=== PATIENT | female | born 1985 | race Caucasian/White ===

== ENCOUNTER → 2017-09-28 | Outpatient (CLI) | payer BC | END | disposition home or self-care (01) | LOC: C.PAPS 15:41 | PROVIDERS: ATTEND Obstetrics & Gynecology | DX: O36.80X0 Pregnancy with inconclusive fetal viability, not applicable or unspecified (principal); Z3A.00 Weeks of gestation of pregnancy not specified ==

== ENCOUNTER → 2017-09-28 | Outpatient (CLI) | payer BC ==
[2017-09-28 13:07] LABS: BASO % 0.9 %; BASO ABS # 0.06 K/uL (0-0.2); COMPLETE YES; EOS % 4.1 %; HEMATOCRIT 38.4 % (37-47); IG% 0.2 %; LYMPH % 23.1 %; LYMPH ABS # 1.52 K/uL (1.2-3.4); MEAN CELL VOLUME 86.5 fL (80-100); MEAN CORPUSCULAR HEMOGLOBIN 29.7 pg (25-34); MEAN CORPUSCULAR HGB CONC 34.4 g/dl (32-36); MEAN PLATELET VOLUME 9.5 fL (7.4-10.4); MONO % 6.8 %; NEUT % 64.9 %; PLATELET COUNT 253 K/uL (130-400); RED BLOOD COUNT 4.44 M/uL (4.2-5.4); WHITE BLOOD COUNT 6.57 K/uL (4.8-10.8)
== END | disposition home or self-care (01) ==
LOC: C.LAB1850 11:52
PROVIDERS: ATTEND Obstetrics & Gynecology
DX: Z34.81 Encounter for supervision of other normal pregnancy, first trimester (principal); Z36.89 Encounter for other specified antenatal screening; O36.80X0 Pregnancy with inconclusive fetal viability, not applicable or unspecified

== ENCOUNTER → 2017-09-28 | Outpatient (CLI) | payer BC ==
[2017-09-28 11:37] LABS: URINE APPEARANCE CLEAR (CLEAR); URINE BILIRUBIN NEG (NEG); URINE COLOR YELLOW; URINE NITRITE NEG (NEG); URINE PH 7.5 (4.5-7.5); URINE SPECIFIC GRAVITY 1.014 (1.000-1.030); UROBILINOGEN NEG (NEG)
[2017-09-28 11:39] LABS: MANUAL MICROSCOPIC REQUIRED? NO; REVIEW REQ? NO
== END | disposition home or self-care (01) ==
LOC: C.LABSPEC 11:04
PROVIDERS: ATTEND Obstetrics & Gynecology
DX: Z36.89 Encounter for other specified antenatal screening (principal)

== ENCOUNTER 2017-10-04 10:43 | Emergency (ER) | payer BC, OTHER ==
[~2017-10-04] VITALS: Ht 170.2 cm; Wt 60.3 kg
[2017-10-04 10:46] VITALS: Ht 170.2 cm; Wt 60.3 kg
[2017-10-04] MEDS ORDERED: ONDANSETRON INJ 2 MG/ML 2 ML VIAL IV STA (11:09)
[2017-10-04] MEDS ORDERED: MoRPHine SULFATE 4 MG/ML 1 ML CARP\\VIAL IV STA (11:28)
[2017-10-04 11:31] VITALS: O2SAT 98
[2017-10-04 11:33] LABS: BASO % 0.3 %; BASO ABS # 0.03 K/uL (0-0.2); EOS % 2.5 %; EOS ABS # 0.23 K/uL (0-0.5); HEMATOCRIT 39.5 % (37-47); HEMOGLOBIN 13.6 g/dL (12.0-16.0); IG# 0.01 K/uL (0.00-0.02); LYMPH % 19.3 %; LYMPH ABS # 1.78 K/uL (1.2-3.4); MEAN CELL VOLUME 86.6 fL (80-100); MEAN CORPUSCULAR HEMOGLOBIN 29.8 pg (25-34); MEAN CORPUSCULAR HGB CONC 34.4 g/dl (32-36); MEAN PLATELET VOLUME 8.9 fL (7.4-10.4); MONO ABS # 0.37 K/uL (0.11-0.59); NEUT % 73.8 %; NEUT ABS # 6.81 K/uL (1.4-6.5); PLATELET COUNT 273 K/uL (130-400); RED CELL DISTRIBUTION WIDTH CV 12.7 % (11.5-14.5); RED CELL DISTRIBUTION WIDTH SD 40.4 fL (36.4-46.3); WHITE BLOOD COUNT 9.23 K/uL (4.8-10.8)
--- NOTE | 2017-10-04 11:43 | EMERGENCY ROOM VISIT NOTE ---
History Report prepared by Sandi: Cyrus Singh Under the Supervision of: Dr. Eloy Dobbs M.D. First contact with patient: 11:07 Chief Complaint: VAGINAL BLEEDING Stated Complaint: MISCARRIAGE,HEAVY BLEEDING,PAIN History of Present Illness The patient is a 32 year old white female 12w LMP with a past medical history of a full term without complications via cesarian section and an appendectomy who presents to the ED with a cc of vaginal bleeding beginning 5 days ago. Positive abdominal pain and tissue expulsion from the vagina. Negative trauma, falls, nausea, vomiting, dizziness, or lightheadedness. She received blood work 6 weeks ago that showed her beta HCG levels decreasing significantly. She was told that a miscarriage was imminent. 5 days ago, the patient began to bleed mildly which worsened over the next couple of days with abdominal pain occurring. She goes through about 1 pad an hour. She denies any known allergies. Source of History: patient Onset: 5 days ago Position: other () Symptom Intensity: moderate Quality: other (Vaginal bleeding) Timing: worsening Associated Symptoms: + abdominal pain, No nausea, No vomiting Note: She states she is passing tissue with her bleeding. She denies any dizziness or lightheadedness. Review of Systems See HPI for pertinent positives and negatives. A total of ten systems were reviewed and were otherwise negative. Past Medical & Surgical Surgical Problems: (1) delivery delivered Family History Patient reports no known family medical history. Social History Smoking Status: Never Smoker Smokeless Tobacco Use: No Alcohol Use: none Drug Use: none Marital Status: Housing Status: lives with family Current/Historical Medications No Active Prescriptions or Reported Meds Allergies Coded Allergies: No Known Allergies (Unverified , 10/04/17) Physical Exam Vital Signs Date Time Temp Pulse Resp B/P (MAP) Pulse Ox O2 Delivery O2 Flow Rate FiO2 10/04/17 14:41 52 12 99/50 100 Room Air 10/04/17 12:34 60 10/04/17 12:30 36.9 57 18 98/60 100 Room Air 10/04/17 11:31 98 Room Air 10/04/17 10:46 36.3 75 18 125/73 100 Room Air Physical Exam GENERAL: Awake, alert, well-appearing, NAD HENT: Normocephalic, atraumatic. EYES: Normal conjunctiva. Sclera non-icteric. NECK: Supple. No nuchal rigidity. FROM. RESPIRATORY: CTAB, no rhonchi, wheezing, crackles CARDIAC: RRR, no MRG ABDOMEN: Soft, NTND, BS+ : Cervical OS not visualized, likely retroverted or off-center, small amount of blood in vaginal vault, no tissue or clots noted, no active bleeding visualized. MSK: No chest wall TTP, no LE edema NEURO: GCS 15, CN 2-12 intact, moves all 4s on command SKIN: No rash or jaundice noted. Medical Decision & Procedures ER Provider Diagnostic Interpretation: Radiology results as stated below per my review and radiologist interpretation: LIMITED ULTRASOUND CLINICAL HISTORY: . Vaginal bleeding. COMPARISON STUDY: No previous studies for comparison. FINDINGS: The uterus measures 8.5 x 4.1 x 4.9 cm. There is a thickened endometrium measuring up to 19 mm. There is debris present within the endometrial cavity with an irregular cystic or saclike structure present within the lower uterine segment measuring 26 x 10 x 8 mm. Given the clinical history, this likely represents an in progress. The right ovary measures 30 x 19 x 25 mm. Left ovary was not visualized. IMPRESSION: 1. No evidence of viable intrauterine gestation 2. Thickened heterogeneous endometrium containing mobile debris and an irregular cystic/saclike structure within the lower uterine segment. The findings likely represent an in progress. 3. Clinical and/or ultrasound follow-up is recommended. Electronically signed by: Daniel Bang M.D. 10/04/2017 12:40 PM Dictated Date/Time: 10/04/2017 12:36 PM Laboratory Results 10/04/17 11:06 Red Blood Count 4.56, Mean Corpuscular Volume 86.6, Mean Corpuscular Hemoglobin 29.8, Mean Corpuscular Hemoglobin Concent 34.4, Mean Platelet Volume 8.9, Neutrophils (%) (Auto) 73.8, Lymphocytes (%) (Auto) 19.3, Monocytes (%) (Auto) 4.0, Eosinophils (%) (Auto) 2.5, Basophils (%) (Auto) 0.3, Neutrophils # (Auto) 6.81, Lymphocytes # (Auto) 1.78, Monocytes # (Auto) 0.37, Eosinophils # (Auto) 0.23, Basophils # (Auto) 0.03 Test 10/04/17 11:06 White Blood Count 9.23 K/uL (4.8-10.8) Red Blood Count 4.56 M/uL (4.2-5.4) Hemoglobin 13.6 g/dL (12.0-16.0) Hematocrit 39.5 % (37-47) Mean Corpuscular Volume 86.6 fL (80-100) Mean Corpuscular Hemoglobin 29.8 pg (25-34) Mean Corpuscular Hemoglobin Concent 34.4 g/dl (32-36) Platelet Count 273 K/uL (130-400) Mean Platelet Volume 8.9 fL (7.4-10.4) Neutrophils (%) (Auto) 73.8 % Lymphocytes (%) (Auto) 19.3 % Monocytes (%) (Auto) 4.0 % Eosinophils (%) (Auto) 2.5 % Basophils (%) (Auto) 0.3 % Neutrophils # (Auto) 6.81 K/uL (1.4-6.5) Lymphocytes # (Auto) 1.78 K/uL (1.2-3.4) Monocytes # (Auto) 0.37 K/uL (0.11-0.59) Eosinophils # (Auto) 0.23 K/uL (0-0.5) Basophils # (Auto) 0.03 K/uL (0-0.2) RDW Standard Deviation 40.4 fL (36.4-46.3) RDW Coefficient of Variation 12.7 % (11.5-14.5) Immature Granulocyte % (Auto) 0.1 % Immature Granulocyte # (Auto) 0.01 K/uL (0.00-0.02) Prothrombin Time 10.6 SECONDS (9.0-12.0) Prothromb Time International Ratio 1.0 (0.9-1.1) Activated Partial Thromboplast Time 26.7 SECONDS (21.0-31.0) Partial Thromboplastin Ratio 1.0 Total Bilirubin 0.4 mg/dl (0.2-1) Direct Bilirubin < 0.1 mg/dl (0-0.2) Aspartate Amino Transf (AST/SGOT) 14 U/L (15-37) Alanine Aminotransferase (ALT/SGPT) 18 U/L (12-78) Alkaline Phosphatase 61 U/L (45-117) Total Protein 7.5 gm/dl (6.4-8.2) Albumin 4.1 gm/dl (3.4-5.0) Human Chorionic Gonadotropin, Qual POS (NEG) Human Chorionic Gonadotropin, Quant 5059 mIU/mL Laboratory results reviewed by me Medications Administered Medications (Trade) Dose Ordered Sig/[facility] Route Start Time Stop Time Status Last Admin Dose Admin Ondansetron HCl (Zofran Inj) 4 mg NOW STAT IV 10/04/17 11:09 10/04/17 11:10 DC 10/04/17 11:27 4 MG Morphine Sulfate (MoRPHine SULFATE INJ) 4 mg NOW STAT IV 10/04/17 11:28 10/04/17 11:29 DC 10/04/17 11:35 4 MG ED Course 1107: The patient was evaluated in room C3. A complete history and physical exam was performed. 1314: I spoke with Dr. Goyal of [facility] at this time. We discussed the patient's case. They recommended discharge and following up with Dr. Newton within the next week. 1332: The patient is agreeable with the plan. We are waiting for a typing screen. 1515: I reevaluated the patient. Discussed results and discharge instructions: She verbalized understanding and agreement. The patient is ready for discharge. Medical Decision The patient is a 32 year old white female 12w LMP with a past medical history of a full term without complications via cesarian section and an appendectomy who presents to the ED with a cc of vaginal bleeding beginning 5 days ago. Positive abdominal pain and tissue expulsion from the vagina. Negative trauma, falls, nausea, vomiting, dizziness, or lightheadedness. Differential diagnosis: Etiologies such as ectopic , dysfunction uterine bleeding, bleeding dyscrasia, trauma, infection, as well as others were entertained. Patient was seen and evaluated the bedside. Patient did have some vaginal bleeding that it began on Monday. It got progressively worse within the last day. She states that she has been going through 1 pad per hour. Patient denies any dizziness or lightheadedness. Patient denies any blood thinning use. Patient denies any trauma. Patient did have some mild discomfort although she has a very soft abdomen. A vaginal exam was performed and it was difficult to visualize the cervical os as this was likely retroverted. Patient did have some scant pooling within the vaginal vault but no visualized active bleeding. Patient states she was 12 weeks by LMP. This is her second . No prior history of any clot disorders in herself or her family. Patient's blood work was completed along with a ultrasound. Patient's blood work was fairly unremarkable as the patient had normal blood counts. Patient did not have an elevated white count. Patient's type and screen did show that the patient was Rh+ and did not require any RhoGAM. Patient's pain was improved after receiving symptom control. Patient's ultrasound did not show any IUP. There are also no retained products. Beta hCG of 5000. I did speak with the [facility] carbon sequestration plant engineer who recommended that they call the clinic office to follow-up within the next week. Patient was informed of all these findings and recommendations. Patient was agreeable with this plan of care. Patient was given strict follow-up, discharge, and return precautions. All questions were answered. Patient was deemed suitable for outpatient follow-up at this time. Patient agreed with the plan of care and was safely discharged home. Medication Reconcilliation Current Medication List: was personally reviewed by me Blood Pressure Screening Patient's blood pressure: Low blood pressure Consults Time Called: 1310 Consulting Physician: Dr. Goyal - [facility] Returned Call: [phone] We discussed the patient's case. They recommended discharge with follow up with Dr. Newton in the near future. Impression Primary Impression: Complete miscarriage Additional Impressions: Vaginal bleeding Abdominal cramping Scribe Attestation The scribe's documentation has been prepared under my direction and personally reviewed by me in its entirety. I confirm that the note above accurately reflects all work, treatment, procedures, and medical decision making performed by me. Departure Information Dispostion Home / Self-Care Prescriptions No Active Prescriptions or Reported Meds Referrals No Doctor, Assigned (PCP) Moni Newton, D.O. Forms HOME CARE DOCUMENTATION FORM, IMPORTANT VISIT INFORMATION, WORK / SCHOOL INSTRUCTIONS Patient Instructions ED Miscarriage Completed, My [facility] Additional Instructions Please return to the emergency department if you have worsening or recurrent symptoms not amenable to at-home treatment. Please call for a follow-up appointment with her primary care physician. Please take your medications as prescribed. If you have other concerns and/or complaints please feel free to also call your primary care physician's office or return the ED for further evaluation, management, and treatment. Please call your [facility] physician's office for a follow-up appointment. You may take 600 mg Ibuprofen every 6 hours as needed for pain with food for no more than 2 consecutive days. You may take tylenol 1000 mg every 6 hours as needed for pain. You may take motrin and tylenol separately or at the same time. Take your medications as prescribed. You have been examined and treated today on an emergency basis only. This is not a substitute for, or an effort to provide, complete comprehensive medical care. It is impossible to recognize and treat all injuries or illnesses in a single emergency department visit. It is therefore important that you follow up closely with [facility], your PCP, and/or your specialist(s). Call as soon as possible for an appointment. Thank you for your time and consideration. I look forward to speaking with you again soon. Please don't hesitate to call us if you have any questions. Problem Qualifiers
[2017-10-04 11:44] LABS: PTT PATIENT 26.7 SECONDS (21.0-31.0)
[2017-10-04 12:07] LABS: ALBUMIN 4.1 gm/dl (3.4-5.0); ALKALINE PHOSPHATASE 61 U/L (45-117); ALT/SGPT 18 U/L (12-78); AST/SGOT 14 U/L (15-37); TOTAL PROTEIN 7.5 gm/dl (6.4-8.2)
[2017-10-04 12:30] VITALS: TEMP 36.9
--- NOTE | 2017-10-04 12:42 | DIAGNOSTIC IMAGING REPORT ---
LIMITED ULTRASOUND CLINICAL HISTORY: . Vaginal bleeding. COMPARISON STUDY: No previous studies for comparison. FINDINGS: The uterus measures 8.5 x 4.1 x 4.9 cm. There is a thickened endometrium measuring up to 19 mm. There is debris present within the endometrial cavity with an irregular cystic or saclike structure present within the lower uterine segment measuring 26 x 10 x 8 mm. Given the clinical history, this likely represents an in progress. The right ovary measures 30 x 19 x 25 mm. Left ovary was not visualized. IMPRESSION: 1. No evidence of viable intrauterine gestation 2. Thickened heterogeneous endometrium containing mobile debris and an irregular cystic/saclike structure within the lower uterine segment. The findings likely represent an in progress. 3. Clinical and/or ultrasound follow-up is recommended. Electronically signed by: Daniel Bang M.D. 10/04/2017 12:40 PM Dictated Date/Time: 10/04/2017 12:36 PM
[2017-10-04 14:41] VITALS: BP 99/50; PULSE 52; O2SAT 100
== END 2017-10-04 15:24 | disposition home or self-care (01) ==
LOC: C.EDB 10:44 → C.EDC 15:24
DX: O03.9 Complete or unspecified spontaneous abortion without complication (principal); Z3A.12 12 weeks gestation of pregnancy

== ENCOUNTER → 2017-10-09 | Outpatient (CLI) | payer OTHER | END | disposition home or self-care (01) | LOC: C.LAB1850 09:22 | PROVIDERS: ATTEND Obstetrics & Gynecology | DX: O03.9 Complete or unspecified spontaneous abortion without complication (principal) ==

== ENCOUNTER 2018-11-24 03:15 | Inpatient (IN) ==
[2018-11-24] MEDS ORDERED: OXYTOCIN 30 UNITS/500 ML BAG IV PRN (04:41)
[2018-11-24] MEDS ORDERED: LACTATED RINGER'S 1,000 ML IV PRN (04:41)
[2018-11-24] MEDS ORDERED: LACTATED RINGER'S 1,000 ML IV SCH ×2 (04:45→07:00)
--- NOTE | 2018-11-24 04:47 | Anesthesiology Consultation ---
Date of Service November 24, 2018 Assessment & Plan (1) Encounter for pre-operative examination: Chart Review Chart Review: Acceptable Risk for Surgery and Patient NOT seen in Pre Admission Testing Consults Requested none History Height/Weight Height: 5 ft 8 in Weight: 79.379 kg Allergies Allergy/AdvReac Type Severity Reaction Status Date / Time No Known Allergies Allergy Unverified 10/04/17 11:35 Medications Home Medications Medication Instructions Recorded Confirmed Last Taken PNV cmb#95-ferrous fumarate-FA 1 tab PO DAILY 11/24/18 11/24/18 11/23/18 09:00 [] Past Medical History Medical History delivery indicated due to breech presentation Past Surgical History Surgical History History of appendectomy Past Anesthesia History No Hx of Anesthesia Complications and No Family Hx of Anesthesia Complications Social History Smoking Status: Never smoker Hx Alcohol Use: No Hx Substance Use: No Exercise / Class Metabolic Activity II 4-5 Yardwork/Stairs/Walk up hill Physical Exam Vital Signs Last Vital Signs Temp 36.4 C L 11/24/18 03:23 Pulse 59 L 11/24/18 04:44 Resp 18 11/24/18 03:23 BP 113/68 11/24/18 03:26 Pulse Ox 100 11/24/18 04:44
--- NOTE | 2018-11-24 04:55 | History & Physical Report ---
Date of Service November 24, 2018 Assessment & Plan (1) Amniotic fluid leaking: Patient is a 33 yo at 41.5 wks with SROM, in early labor, h/o prior Csection, desires TOLAC VSS Afebrile FHR with prolonged deceleration with spontenous recovery, remote from delivery Discussed the findings, FHR deceleration, TOLAC, the risks of uterine rupture, cord accident, uteroplacental insufficiency in details Recommended Repeat Ceserean Section She will discuss with her and decide All questions were answered (2) Post-dates : (3) History of delivery: History of Present Illness Chief Complaint: Leaking bloody fluids Primary Care Provider: NO PCP Patient is a 33 yo at 41.5 wks who has been feeling small amount of fluid leaking since 2 am, pink in color Cramping for the last 2 days but more since leaking +FM's No other complaints Her has been complicated by 1) h/p prior Csection on 09/2016, PLTCS 2) Desired TOLAC/ Understands the risks of TOLAC and signed the informed consnet from [employer] in the office She declined IOL around 41 weeks and was scheduled for IOL on 11/26 at 42 weeks Allergies Allergy/AdvReac Type Severity Reaction Status Date / Time No Known Allergies Allergy Unverified 10/04/17 11:35 Home Medications Home Medications Medication Instructions Recorded Confirmed Type PNV cmb#95-ferrous fumarate-FA 1 tab PO DAILY 11/24/18 11/24/18 History [] Patient History Medical History delivery indicated due to breech presentation Surgical History History of appendectomy Social History marital status: Feels Safe at Home: Yes Safety Concerns: Feels Safe At This Time Smoking Status: Never smoker Hx Alcohol Use: No Hx Substance Use: No 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 Denies h/o STD's, no h/o HSV, GC/Chlamydia Review of Systems All systems reviewed & are unremarkable except as noted in HPI & below Physical Exam 2 Vital Signs (Past 24 Hours): Last Vital Signs Temp 36.4 C L 11/24/18 03:23 Pulse 58 L 11/24/18 04:39 Resp 18 11/24/18 03:23 BP 113/68 11/24/18 03:26 Pulse Ox 100 11/24/18 04:39 Constitutional: WD/WN, vitals as above well nourished and comfortable Respiratory: normal respiratory effort, lungs clear to auscultation normal respiratory effort Auscultation: lungs clear to auscultation bilaterally Cardiovascular: RRR, no murmur, no edema Rate/Rhythm: regular rate and regular rhythm Heart Sounds: normal S1 and normal S2 Gastrointestinal (Abdomen): Percussion/Palpation: abdomen soft NT, Gravid, mild ctxs q 4-5 min Genitourinary: SSE: pinkis small fluid, Ferning + Cervix 1 cm/ 80%/ -3, vertex Confirmed by bed side US: FHR 120's after decel, AFV normal visually, vertex, FM 's and breathing seen Monitoring External Monitor 130's was reactive upon admission then had prolonged deceleration to 70's for 4- 5 min with spontaneous recovery Good variability and accels Tocodynamometer Mild ctxs q 4-5 min
[2018-11-24] MEDS ORDERED: CEFAZOLIN 2000MG 2,000 MG/15 ML SYR IV ONE (05:00)
[2018-11-24] MEDS ORDERED: OXYTOCIN 10 UNITS/ML VIAL ONE (05:06)
[2018-11-24] MEDS ORDERED: fentaNYL citrate 100 MCG/2 ML VIAL ONE (05:06)
[2018-11-24] MEDS ORDERED: PHENYLEPHRINE 100MCG/ML 5ML SYR ONE (05:06)
[2018-11-24] MEDS ORDERED: MoRPHine SULFATE PF 1 MG/ML 10 ML AMP/VIAL ONE (05:06)
[2018-11-24 05:11] LABS: Hematocrit (blood only) 40.4 % (37-47); Hemoglobin 14.1 g/dL (12.0-16.0); Mean Corpuscular Volume 88.2 fL (80-100); Mean Platelet Volume 10.4 fL (7.4-10.4); Platelet Count 167 K/uL (130-400); RDW Coefficient of Variation 12.5 % (11.5-14.5); RDW Standard Deviation 40.1 fL (36.4-46.3); Red Blood Count 4.58 M/uL (4.2-5.4); White Blood Count 6.87 K/uL (4.8-10.8)
--- NOTE | 2018-11-24 05:12 | Obstetrical Progress Note ---
Date of Service November 24, 2018 Subjective Patient and her decided for Repeat Csection She understands the risks and signed the informed consent Physical Exam 2 Vital Signs (Past 24 Hours): Last Vital Signs Temp 36.4 C L 11/24/18 03:23 Pulse 66 11/24/18 05:09 Resp 18 11/24/18 03:23 BP 113/68 11/24/18 03:26 Pulse Ox 100 11/24/18 05:09
[2018-11-24 05:16] LABS: Mean Corpuscular Hgb Conc 34.9 g/dL (32-36)
[2018-11-24] MEDS ORDERED: CITRIC ACID/SODIUM CITRATE 15 ML UDC ONE (05:16)
[2018-11-24] MEDS ORDERED: NALOXONE HCL 0.4 MG/1 ML VIAL/CARP IV PRN (05:43)
[2018-11-24] MEDS ORDERED: DiphenhydrAMINE HCL 50 MG/ML VIAL IV PRN ×2 (05:43→23:45)
[2018-11-24] MEDS ORDERED: MoRPHine SULFATE 2 MG/ML CARP IV PRN (05:43)
[2018-11-24] MEDS ORDERED: MEPERIDINE HCL 25 MG/ML CARP IV PRN (05:43)
[2018-11-24] MEDS ORDERED: NALOXONE HCL 0.08 MG in SYRINGE 1.8 ML IV PRN (05:43)
[2018-11-24] MEDS ORDERED: MoRPHine SULFATE PF 1 MG/ML 10 ML AMP/VIAL INT SPINAL ONE (05:43)
[2018-11-24] MEDS ORDERED: ePHEDrine sulfate 50 MG/ML AMP IV PRN (05:43)
[2018-11-24] MEDS ORDERED: KETOROLAC 30 MG/ML VIAL IV PRN ×2 (05:43→23:45)
[2018-11-24] MEDS ORDERED: LACTATED RINGER'S 500 ML IV PRN (05:43)
[2018-11-24] MEDS ORDERED: NALBUPHINE HCL INJ 10 MG/ML AMP IV PRN (05:43)
[2018-11-24] MEDS ORDERED: ONDANSETRON INJ 2 MG/ML 2 ML VIAL IV PRN ×2 (05:43→23:45)
[2018-11-24] MEDS ORDERED: NALOXONE HCL 1 MG in SODIUM CHLORIDE 0.9% 1000ML 1,000 ML IV PRN (05:43)
[2018-11-24] MEDS ORDERED: NO NARCOTICS OR SEDATIVES SCH (05:45)
[2018-11-24] MEDS ORDERED: SODIUM CHLORIDE 0.9% 1000ML 1,000 ML IV SCH (05:45)
[2018-11-24] MEDS ORDERED: DC INTRASPINAL MORPHINE SCH (05:45)
[2018-11-24] MEDS ORDERED: HYDROCORTISONE ACETATE 25 MG SUPP PR PRN (06:54)
[2018-11-24] MEDS ORDERED: BENZOCAINE 20% AER SPR 82.5 GM CAN EXT PRN (06:54)
[2018-11-24] MEDS ORDERED: MAGNESIUM HYDROXIDE SUSP 30 ML UDC PO PRN (06:54)
[2018-11-24] MEDS ORDERED: PROMETHAZINE HCL 25 MG in SODIUM CHLORIDE 0.9% 50 ML IV PRN (06:54)
[2018-11-24] MEDS ORDERED: SUPERCREAM 0.870% 15 GM JAR EXT PRN (06:54)
[2018-11-24] MEDS ORDERED: SENNA 8.6 MG TAB PO PRN (06:54)
[2018-11-24] MEDS ORDERED: DIPHTHERIA/TETANUS/PERTUSSIS 0.5 ML SYR/VIAL IM ONE (06:54)
--- NOTE | 2018-11-24 06:54 | Post Operative Brief Note ---
Immediate Post Op Note v1 Date of Surgery November 24, 2018 Pre & Post Diagnosis Operation Date: 11/24/18 05:30 Pre-Op Diagnosis: Repeat Section Post Dates Post-Op Diagnosis: Same as pre operative Procedure Operation Date: 11/24/18 05:30 Actual Procedures p Repeat Section in LD(Bilateral) - Shirley Lester MD Surgeon Shirley Lester MD Scroll Machine Operator Gricelda Self RN Estimated Blood Loss 500 Findings Consistent with Post-Op Diagnosis Drains Anaya Catheter Complications none Disposition Accompanied Patient To Recovery: Yes Disposition: L&D Overlapping Procedure I was present for: the critical portions of procedure. (entire case)
--- NOTE | 2018-11-24 07:13 | Anesthesiology Progress Note ---
Date of Service November 24, 2018 Anesthesia Post Procedure Vital Signs Vital Signs: Temp Pulse Resp BP Pulse Ox 11/24/18 07:10 50 L 99 11/24/18 07:07 54 L 92 11/24/18 07:05 51 L 100 11/24/18 07:00 48 L 100 11/24/18 06:55 49 L 130/68 100 11/24/18 05:24 69 100 11/24/18 05:19 59 L 100 11/24/18 05:14 62 100 11/24/18 05:09 66 100 11/24/18 05:04 67 100 11/24/18 04:59 63 100 11/24/18 04:54 61 100 11/24/18 04:49 59 L 100 11/24/18 04:44 59 L 100 11/24/18 04:39 58 L 100 11/24/18 04:34 58 L 100 11/24/18 04:29 66 100 11/24/18 04:24 72 100 11/24/18 03:26 63 113/68 11/24/18 03:23 36.4 C L 18 Notes Mental Status: alert / awake / arousable Patient Amnestic to Procedure: No Nausea / Vomiting: adequately controlled Pain: adequately controlled Airway Patency, RR, SpO2: stable & adequate BP & HR: stable & adequate Hydration State: stable & adequate Neuraxial Anesthesia: was administered and sensory block is resolving Anesthetic Complications: no major complications apparent and Pt Satisfied with anesthetic care Notes: Patient�s temp low. She denies feeling cold and is not shivering. I asked nurses to place forced air warmer, which will be done. Passed this information along to oncoming anesthesiologist. Low temp likely from duramorph so if continues to be low could consider low dose ativan.
--- NOTE | 2018-11-24 07:55 | Operative Report ---
DATE OF OPERATION: 11/24/2018 PREOPERATIVE DIAGNOSIS: The patient is a 33-year-old G3, P1-0-1-1 at 41 weeks and 5 days of gestation with history of prior , planning for OTLAC/ (trial of labor after / Vaginal after ) Presented with spontaneous rupture of membranes, had prolonged heart rate deceleration and remote from delivery. POSTOPERATIVE DIAGNOSIS: The patient is a 33-year-old G3, P1-0-1-1 at 41 weeks and 5 days of gestation with history of prior , planning for OTLAC/ (trial of labor after / Vaginal after ) Presented with spontaneous rupture of membranes, had prolonged heart rate deceleration and remote from delivery. PROCEDURE: Repeat low transverse with Pfannenstiel skin incision. SURGEON: Shirley Lester MD ANIMAL CARE SUPERVISOR: Gricelda Self RN ESTIMATED BLOOD LOSS: 500 mL FLUIDS: 1000 mL of lactated Ringer's. DRAINS: Anaya catheter drained 300 mL of clear urine. COMPLICATIONS: None. ANESTHESIA: Spinal, Dr. John Roberts. FINDINGS: Baby was a viable female infant delivered in cephalic presentation, at 0554 am, weight 3790 gr and Apgars 9/9. Maternal findings, normal uterus, fallopian tubes, and ovaries. DESCRIPTION OF PROCEDURE: The patient was taken to the operating room, where spinal anesthesia was given without difficulty. She was placed in dorsal supine position with a leftward tilt. She was prepared and draped in usual sterile fashion. A Pfannenstiel skin incision was made from the old scar and carried through to the underlying layer of fascia with the Bovie. Fascia was incised in the midline and incision was extended laterally with the help of Cormier scissors. Lower aspect of the fascial incision was then grasped with 2 Neida clamps, elevated. Underlying rectus muscles were dissected off sharply with Cormier scissors and bluntly with fingers. Upper aspect of the fascial incision was then grasped with 2 Neida clamps, elevated. Underlying rectus muscles were dissected sharply with Cormier scissors. The rectus muscles were already in the midline and the peritoneum was entered and the incision was extended superiorly and inferiorly with good visualization of the bladder. Bladder blade was inserted. Vesicouterine peritoneum was identified, grasped with pickups, entered sharply with Metzenbaum scissors. Bladder flap was created digitally and bladder blade was reinserted. Lower uterine segment was intact. It was incised in transverse fashion. Incision was extended laterally with the help of fingers. Membranes were ruptured. Clear fluid was obtained and baby's head was delivered without difficulty. Shoulders were delivered with minimal traction. Mouth and nose were suctioned. Cord was clamped x2 and cut. It was 3 vessels cord and baby was handed to waiting shoe lay out planner. The placenta was delivered manually as intact and complete. Uterus was exteriorized, cleared of all clots and debris. Fundus was firm and the uterine incision was repaired with 0 Vicryl in a running locked fashion and then a second imbricating layer was placed with another 0 Vicryl in a running locked fashion. There were some oozing on the middle and the left side of the incision and those were controlled with [id number] stitches and excellent hemostasis was achieved. Uterus was returned to the patient's abdomen. The pelvis was irrigated with warm normal saline and suctioned. Incision was again inspected to be hemostatic and then Al powder was powered over the incision and surgical site and hemostasis was excellent. Then parietal peritoneum was reapproximated with 3-0 Vicryl in a running fashion and the rectus muscles were reapproximated with the same suture in a running fashion and the rectus fascia was reapproximated with 0 Vicryl in a running fashion and subcuticular fat tissue was brought together with 3-0 Vicryl in a running fashion. Skin was closed with 4-0 Monocryl in a subcuticular fashion. Skin was closed and covered with Steri-Strips. The patient tolerated the procedure well. Sponge, lap, needle count was correct x3. She was given 2 grams of Cefazolin before surgery. No complications happened and I was present during whole procedure. The patient was taken to recovery room in stable condition. I attest to the content of the Intraoperative Record and any orders documented therein. Any exceptions are noted below. JERRY
[2018-11-24] MEDS: OXYTOCIN 20 UNITS in LACTATED RINGER'S 1,000 ML IV SCH ×2 (08:51→16:27)
[2018-11-24] MEDS: SIMETHICONE 80 MG CHEW PO SCH ×4 (10:43→20:18)
[2018-11-24] MEDS: DOCUSATE SODIUM 100 MG CAP PO SCH ×2 (12:05→20:18)
[2018-11-24] MEDS: PRENATAL VITAMIN 1 TAB PO SCH (12:06)
[2018-11-24] MEDS: FERROUS SULFATE 325 MG TAB PO SCH (12:06)
[2018-11-24] MEDS ORDERED: MEPERIDINE HCL 50 MG/ML CARP IV PRN (23:45)
[2018-11-25] MEDS: IBUPROFEN 600 MG TAB PO PRN ×4 (04:04→17:11)
[2018-11-25] MEDS: OXYCODONE/ACETAMINOPHEN 5mg/325mg TAB PO PRN ×4 (04:05→19:50)
[2018-11-25 08:08] LABS: Basophils # (auto) 0.01 K/uL (0-0.2); Basophils % (auto) 0.1 %; Eosinophils # (auto) 0.03 K/uL (0-0.5); Eosinophils % (auto) 0.3 %; Hematocrit (blood only) 37.1 % (37-47); Hemoglobin 12.9 g/dL (12.0-16.0); Immature Granulocytes # (auto) 0.02 K/uL (0.00-0.02); Immature Granulocytes % (auto) 0.2 %; Lymphocytes # (auto) 1.15 K/uL (1.2-3.4); Lymphocytes % (auto) 13.1 %; Mean Corpuscular Hgb Conc 34.8 g/dL (32-36); Mean Platelet Volume 9.9 fL (7.4-10.4); Monocytes # (auto) 0.53 K/uL (0.11-0.59); Neutrophils # (auto) 7.04 K/uL (1.4-6.5); Neutrophils % (auto) 80.3 %; Platelet Count 174 K/uL (130-400); RDW Standard Deviation 42.8 fL (36.4-46.3); Red Blood Count 4.12 M/uL (4.2-5.4); White Blood Count 8.78 K/uL (4.8-10.8)
[2018-11-25] MEDS: DOCUSATE SODIUM 100 MG CAP PO SCH ×2 (08:34→19:50)
[2018-11-25] MEDS: SIMETHICONE 80 MG CHEW PO SCH ×4 (08:34→19:50)
[2018-11-25] MEDS: PRENATAL VITAMIN 1 TAB PO SCH (08:34)
[2018-11-25] MEDS: FERROUS SULFATE 325 MG TAB PO SCH (08:34)
--- NOTE | 2018-11-25 10:31 | Obstetrical Progress Note ---
Date of Service November 25, 2018 Physical Exam 2 Vital Signs (Past 24 Hours): Last Vital Signs Temp 36.8 C 11/25/18 07:45 Pulse 71 11/25/18 07:45 Resp 18 11/25/18 07:45 BP 92/56 L 11/25/18 07:45 Pulse Ox 99 11/25/18 07:45 Physical Exam: abdomen soft and non tender vaginal bleeding scant to moderate bowel sounds normal patient is passing gas bandage removed no calf tenderness
[2018-11-25] MEDS ORDERED: BISACODYL 5 MG TABEC PO SCH (20:00)
[2018-11-26] MEDS: OXYCODONE/ACETAMINOPHEN 5mg/325mg TAB PO PRN ×3 (01:41→12:56)
[2018-11-26] MEDS: IBUPROFEN 600 MG TAB PO PRN ×3 (01:41→12:55)
[2018-11-26] MEDS ORDERED: BISACODYL 10 MG SUPP PR PRN (06:54)
--- NOTE | 2018-11-26 08:01 | Surgery Progress Note ---
Date of Service November 26, 2018 Subjective doing well passing gas tolerating diet ambulating well incision clean/dry/intact neg [facility]'s plan for discharge Physical Exam 2 Vital Signs (Past 24 Hours): Last Vital Signs Temp 37 C 11/25/18 23:25 Pulse 79 11/25/18 23:25 Resp 16 11/25/18 23:25 BP 97/63 L 11/25/18 23:25 Pulse Ox 96 11/25/18 23:25
[2018-11-26 08:22] LABS: Hematocrit (blood only) 35.4 % (37-47); Hemoglobin 12.2 g/dL (12.0-16.0)
[2018-11-26] MEDS: SIMETHICONE 80 MG CHEW PO SCH ×2 (09:01→12:56)
[2018-11-26] MEDS: DOCUSATE SODIUM 100 MG CAP PO SCH (09:01)
[2018-11-26] MEDS: PRENATAL VITAMIN 1 TAB PO SCH (09:01)
[2018-11-26] MEDS: FERROUS SULFATE 325 MG TAB PO SCH (09:01)
--- NOTE | 2018-11-27 22:48 | Discharge Summary ---
DETAILS OF ADMISSION: The patient is a 33-year-old G3, P1-0-1-1 at 41 weeks and 5 days of gestation with a history of prior . She was planning to have TOLAC / ( trial of labor after / vaginal after C- section) She was scheduled for induction at 42 weeks on 11/26/2018 for this. She presented to labor and delivery on 11/24/2018 morning with leakage of fluid, which was confirmed to be spontaneous rupture of membranes. Her cervix was 1 cm and her head was at -2 station. She was having mild contractions and was in early/latent labor. During monitoring heart rate had a prolonged deceleration to the 70s, which lasted about 5-6 minutes and then recovered and discussed with the patient the findings and a trial of labor after , induction with oxytocin, increased risk of uterine rupture and being from remote delivery. After a long discussion with her and her , they decided to proceed with a repeat . She had repeat low transverse with Pfannenstiel skin incision on 11/24/2018, delivered a viable male at 05:54 a.m. and her surgery was uncomplicated. See dictated op note for details and on the postop period, the patient did well. PHYSICAL EXAMINATION: VITAL SIGNS: Stable, afebrile. Urine output was good. Physical exam was unremarkable. ABDOMEN: Soft, nontender, nondistended. Incision was clean, dry and intact. She started passing gas on day 1 and advanced to regular diet and she ambulated, tolerated regular diet. On postop day #2, 11/26/2018, she was doing well, ambulating, tolerating regular diet, passing gas and physical exam was unremarkable. Her incision was clean, dry and intact. Abdomen was soft, nontender. EXTREMITIES: Nontender, no edema. The patient desired to be discharged home on postop day 2, she was discharged by Dr. Lobo on 11/26/2018. Discharge instructions were given when to call, prescriptions were written for pain. She is to be seen in the office in a week for incision check. JERRY
== END 2018-11-26 16:30 | disposition home or self-care (01) | DRG 788 ==
LOC: OPB 03:15 → 4S1 03:19 → 4S2 10:30